=== PATIENT | female | born 1995 ===

== ENCOUNTER 2022-08-03 10:02 | Outpatient (CLI) | payer OTHER | END 2022-08-03 12:20 | disposition home or self-care (01) | LOC: PRENATAL 10:02 | PROVIDERS: ATTEND Obstetrics & Gynecology Maternal & Fetal Medicine | DX: O36.80X0 Pregnancy with inconclusive fetal viability, not applicable or unspecified (principal); Z36.0 Encounter for antenatal screening for chromosomal anomalies; Z14.8 Genetic carrier of other disease; O36.4XX0 Maternal care for intrauterine death, not applicable or unspecified; Z3A.14 14 weeks gestation of pregnancy ==

== ENCOUNTER 2022-09-12 16:00 | Outpatient (CLI) | payer OTHER | END 2022-09-12 17:24 | disposition home or self-care (01) | LOC: PRENATAL 16:00 | PROVIDERS: ATTEND Obstetrics & Gynecology Maternal & Fetal Medicine | DX: O35.9XX0 Maternal care for (suspected) fetal abnormality and damage, unspecified, not applicable or unspecified (principal); O34.219 Maternal care for unspecified type scar from previous cesarean delivery; O36.4XX0 Maternal care for intrauterine death, not applicable or unspecified; O35.3XX0 Maternal care for (suspected) damage to fetus from viral disease in mother, not applicable or unspecified; Z3A.20 20 weeks gestation of pregnancy ==